=== PATIENT | female | born 1990 | race Caucasian/White ===

== ENCOUNTER 2023-02-10 12:00 | Emergency (ER) | payer MEDICAID ==
[~2023-02-10] VITALS: Ht 167.6 cm; Wt 90.0 kg
[2023-02-10 12:25] VITALS: BP 128/97; O2SAT 100
[2023-02-10] MEDS ORDERED: BACITRACIN ZINC OINT UDPKT TOP ONE (15:30)
[2023-02-10] MEDS ORDERED: LIDOCAINE HCL/PF 1% 10 MG/ML 5ML VIAL INFIL ONE (15:30)
[2023-02-10] MEDS ORDERED: TETANUS, DIPHTHERIA, PERTUSSIS VAC/PF 0.5ML (>10YR OLD) IM ONE (15:30)
[2023-02-10] MEDS ORDERED: SULF1TAB48 MT (15:32)
[2023-02-10] MEDS ORDERED: AMOX1TAB16 MT (15:32)
[2023-02-10 17:22] VITALS: PULSE 91; RESP 20; TEMP 97.7
== END 2023-02-10 17:24 | disposition home or self-care (01) ==
LOC: ER 13:56
DX: N75.1 Abscess of Bartholin's gland (principal); Z98.890 Other specified postprocedural states
CPT/HCPCS: 81025; 90715; 42000; 90471; 99284; J3490; Z7610